=== PATIENT | male | born 1960 | race African-American/Black ===

== ENCOUNTER → 2018-01-05 09:49 | Outpatient (CLI) | payer BC ==
[~2018-01-05 09:49] MED LIST: BC POWDER; GLUCOPHAGE500 MG PO; LOTENSIN20 MG; LOTREL 10/20 CA1 CAP PO; NEURONTIN 300300 MG PO; NORVASC10 MG PO; PLAVIX75 MG PO
[2018-01-29 06:23] VITALS: BMI 21.4
== END | disposition home or self-care (01) ==
LOC: D.CT 09:49
DX: I73.9 Peripheral vascular disease, unspecified (principal)

== ENCOUNTER 2018-01-09 05:13 | Outpatient (CLI) | payer BC ==
[2018-01-09] VITALS (9 sets, daily range): BP systolic 131–190; BP diastolic 71–88; Ht 185.4 cm; Wt 75.0 kg
[~2018-01-09] VITALS: Ht 185.4 cm; Wt 75.0 kg
--- NOTE | ~2018-01-09 | HEMODYNAMI ---
PATIENT:JENA REAVES MEDICAL RECORD: [id number] : 56 [id number] ADMISSION DATE: 01/09/18 Generatedon:01/09/201813:42 Patient name: JENA REAVES Patient #: [id number] SSN: : 1960 Date of study: 01/09/2018 Page: Of Hemodynamic Procedure Report Patient Data Patient Demographics Procedure consent was obtained First Name: JENA Gender: Male Last Name: JELLY : 1960 Middle Initial: L Age: 57 year(s) Patient #: [id number] Race: Black Additional ID: [id number] Contact details [address]: [address] [place] [address] State: [place] City: [place] Zip code: [address] Admission Admission Data Admission Date: 01/09/2018 Admission Time: 5:13 Procedure Procedure Types Cath Procedure Peripheral Cath Diagnostic Procedure Abd/Extremity Extremities Procedure Description Procedure Date Procedure Date: 01/09/2018 Procedure Start Time: 8:55 Procedure Staff Name Function Richard Pacheco MD Performing Physician Garth Ovalles RT Monitor Kaitlyn Garcia RT Scrub Tamela Gandhi RN Nurse Procedure Data Cath Procedure Fluoroscopy Diagnostic fluoroscopy Total fluoroscopy Time: time: 62.9 min 62.9 min Diagnostic fluoroscopy Total fluoroscopy dose: 759 dose: 759 mGy mGy Contrast Material Contrast Material Type Amount (ml) Isovue 300 130 Entry Location Entry Primary Successful Side Size Upsize 1 Upsize 2 Entry Closur e Successful Closure Location (Fr) (Fr) (Fr) Remarks Device Remarks Femoral Right 5 Fr 6 Fr 7 Fr Mynx artery Mid-Length Mid-Length Sawmill Production Worker 6Fr/7Fr Diagnostic catheters Device Type Used For End Catheter Placement DIAGNOSTIC IMT 5Fr Catheter ([id number]) Procedure Medications Medication Administration Route Dosage Fentanyl I.V. 50 mcg Versed I.V. 1 mg Oxygen etCO2 Nasal cannula 3 l/min Lidocaine 1% added to field 20 Heparin Flush Bag added to field 3 bags (1000units/500ml NS) Fentanyl I.V. 50 mcg Heparin Bolus I.V. 4000 units Fentanyl I.V. 50 mcg Heparin Bolus I.V. 2000 units Fentanyl I.V. 50 mcg Fentanyl I.V. 50 mcg Versed I.V. 1 mg Heparin Bolus I.V. 2000 units Nitroglycerin IC/IA I.C. 300 mcg Nitroglycerin IC/IA I.C. 300 mcg Heparin Bolus I.V. 2000 units Fentanyl I.V. 50 mcg Fentanyl I.V. 50 mcg Heparin Bolus I.V. 3000 units Nitroglycerin IC/IA I.C. 400 mcg Heparin Flush Bag added to field 1 bags (1000units/500ml NS) Heparin Drip I.V. drip 1000 units/hr (74479gnxbf/250 D5W) Hemodynamics Rest Heart Rate: 68 (bpm) Snapshots Pre Cath Intra NCS Post Cath Vital Signs Time Heart Resp SPO2 etCO2 NIBP (mmHg) Rhythm Pain Status Sedation Rate (ipm) (%) (mmHg) Level (bpm) 8:31:52 69 4 99 38.4 141/75(110) NSR 0 (11) , No 10(A) pain 8:36:16 69 2 100 42.1 145/70(96) NSR 0 (11) , No 10(A) pain 8:40:37 69 15 100 30.1 140/77(107) NSR 0 (11) , No 10(A) pain 8:45:01 66 15 100 26.3 147/72(114) NSR 0 (11) , No 10(A) pain 8:49:23 64 17 100 29.3 146/75(117) NSR 0 (11) , No 10(A) pain 8:53:45 85 8 100 39.1 146/75(108) NSR 0 (11) , No 10(A) pain 8:58:05 78 19 100 21 137/74(116) NSR 0 (11) , No 8(A) pain 9:02:27 72 16 100 19.5 147/70(115) NSR 0 (11) , No 8(A) pain 9:06:50 65 12 100 25.5 139/71(121) NSR 0 (11) , No 8(A) pain 9:11:12 70 14 99 30.8 152/72(119) NSR 2 (11) , 8(A) Uncomfortable 9:15:36 69 15 99 30.8 156/77(126) NSR 0 (11) , No 8(A) pain 9:19:54 82 16 96 22.5 150/78(115) NSR 0 (11) , No 8(A) pain 9:24:14 83 19 98 33.1 146/78(107) NSR 0 (11) , No 8(A) pain 9:28:36 80 18 97 32.4 147/78(115) NSR 0 (11) , No 8(A) pain 9:32:49 71 17 96 29.3 137/76(109) NSR 0 (11) , No 8(A) pain 9:37:09 81 17 97 35.3 135/74(106) NSR 0 (11) , No 8(A) pain 9:41:29 81 18 98 30.1 141/74(123) NSR 2 (11) , 8(A) Uncomfortable 9:45:41 73 20 95 28.6 132/80(104) NSR 0 (11) , No 8(A) pain 9:49:59 68 18 98 27.8 136/77(106) NSR 0 (11) , No 8(A) pain 9:54:21 70 16 98 33.9 136/65(95) NSR 0 (11) , No 8(A) pain 9:58:43 66 17 99 32.4 131/66(104) NSR 0 (11) , No 8(A) pain 10:02:59 71 21 98 26.3 135/74(110) NSR 0 (11) , No 8(A) pain 10:07:19 67 18 98 31.6 143/71(105) NSR 0 (11) , No 8(A) pain 10:11:37 72 17 98 30.8 131/67(104) NSR 0 (11) , No 8(A) pain 10:15:57 74 13 95 30.1 134/69(108) NSR 2 (11) , 8(A) Uncomfortable 10:20:16 68 15 98 17.3 139/72(101) NSR 0 (11) , No 8(A) pain 10:24:31 67 18 98 36.1 139/69(97) NSR 0 (11) , No 8(A) pain 10:28:50 70 18 99 24 136/70(107) NSR 0 (11) , No 8(A) pain 10:33:05 69 19 96 27 135/75(109) NSR 0 (11) , No 8(A) pain 10:37:24 69 18 98 25.5 132/75(105) NSR 4 (11) , 8(A) Distressing 10:41:40 68 15 96 36.9 135/72(107) NSR 0 (11) , No 8(A) pain 10:45:54 69 11 96 42.1 129/78(106) NSR 0 (11) , No 8(A) pain 10:50:08 73 12 97 42.9 132/74(116) NSR 0 (11) , No 8(A) pain 10:54:28 91 14 96 33.8 126/69(92) NSR 0 (11) , No 8(A) pain 10:58:42 85 14 96 38.3 141/78(113) NSR 0 (11) , No 8(A) pain 11:03:02 88 14 96 38.3 135/81(107) NSR 0 (11) , No 8(A) pain 11:07:22 74 14 96 38.3 139/74(110) NSR 0 (11) , No 8(A) pain 11:11:36 74 14 96 38.3 131/81(94) NSR 0 (11) , No 8(A) pain 11:15:48 70 15 96 38.3 130/82(90) NSR 0 (11) , No 8(A) pain 11:20:04 85 15 96 37.6 134/71(96) NSR 0 (11) , No 8(A) pain 11:24:16 90 16 98 32.3 131/77(100) NSR 0 (11) , No 8(A) pain 11:28:32 73 15 96 32.3 143/81(107) NSR 0 (11) , No 8(A) pain 11:32:52 70 18 94 18.8 138/78(101) NSR 0 (11) , No 8(A) pain 11:37:10 67 16 94 30.8 136/77(108) NSR 0 (11) , No 8(A) pain 11:41:28 85 16 29.3 120/77(102) NSR 0 (11) , No 8(A) pain 11:45:42 69 17 24.1 137/76(108) NSR 0 (11) , No 8(A) pain 11:49:58 70 21 27.8 133/77(107) NSR 0 (11) , No 8(A) pain 11:54:14 69 20 15.8 133/74(107) NSR 0 (11) , No 8(A) pain 11:58:30 67 19 24.1 133/72(106) NSR 4 (11) , 8(A) Distressing 12:02:50 66 19 26.3 143/76(116) NSR 0 (11) , No 8(A) pain 12:07:13 67 17 22.6 141/75(121) NSR 0 (11) , No 8(A) pain 12:11:35 65 18 98 29.3 140/74(115) NSR 0 (11) , No 8(A) pain 12:15:51 70 18 22.6 137/79(111) NSR 0 (11) , No 8(A) pain 12:20:07 65 16 99 36.9 139/83(98) NSR 0 (11) , No 8(A) pain 12:24:21 67 11 98 35.4 142/78(109) NSR 0 (11) , No 8(A) pain 12:28:41 87 13 97 35.4 141/83(106) NSR 0 (11) , No 8(A) pain 12:33:03 79 13 98 39.1 139/78(119) NSR 0 (11) , No 8(A) pain 12:37:23 74 14 98 35.3 137/75(102) NSR 0 (11) , No 8(A) pain 12:42:22 86 13 98 37.6 Measuring NSR 0 (11) , No 8(A) pain 12:42:28 85 12 99 37.6 143/83(103) NSR 0 (11) , No 8(A) pain 12:46:44 90 13 99 37.6 139/75(114) NSR 0 (11) , No 8(A) pain 12:51:02 84 13 99 35.4 153/84(113) NSR 0 (11) , No 8(A) pain 12:55:18 88 15 99 28.6 146/83(108) NSR 0 (11) , No 8(A) pain 12:59:30 85 16 99 35.4 145/91(110) NSR 0 (11) , No 8(A) pain 13:03:46 81 15 100 30.8 135/83(110) NSR 0 (11) , No 8(A) pain 13:08:46 86 15 100 30.1 Measuring NSR 0 (11) , No 8(A) pain 13:09:06 89 16 100 24.1 159/99(124) NSR 0 (11) , No 8(A) pain 13:14:05 76 19 100 20.3 Measuring NSR 0 (11) , No 8(A) pain 13:14:17 70 16 100 23.3 154/85(123) NSR 0 (11) , No 8(A) pain 13:18:35 79 19 99 19.5 162/94(137) NSR 0 (11) , No 8(A) pain 13:23:02 76 16 100 26.3 157/89(130) NSR 0 (11) , No 8(A) pain 13:27:28 74 19 99 13.5 154/89(126) NSR 0 (11) , No 8(A) pain 13:31:50 71 17 99 25.5 162/89(134) NSR 0 (11) , No 8(A) pain 13:36:14 99 23.3 171/95(151) NSR 0 (11) , No 8(A) pain 13:40:14 0 No Cuff NSR 0 (11) , No 8(A) pain Medications Time Medication Route Dose Verified Delivered Reason Note s Effectiveness by by 8:56:22 Fentanyl I.V. 50 mcg Richard Rapp for Mostly Tara Gandhi RN sedation sleeping @ MD 9:05:51 8:56:33 Versed I.V. 1 mg Richard Rapp for Mostly Tara Gandhi RN sedation sleeping @ MD 9:05:45 8:56:51 Oxygen etCO2 3 l/min Richard Rapp Per Nasal Tara Gandhi RN protocol cannula MD 8:57:02 Lidocaine 1% added 20ml vial Richard Ramos Per to Tara Pacheco protocol field MD BARRIENTOS 8:57:23 Heparin Flush added 3 bags Richard Ramos Per Bag to Tara Pacheco protocol (1000units/500ml field MD BARRIENTOS NS) 9:15:24 Fentanyl I.V. 50 mcg Richard Ramos for Mostly Tara Pacheco sedation sleeping @ MD BARRIENTOS 9:23:35 9:15:40 Heparin Bolus I.V. 4000 units Richard Rapp Per Tara Gandhi RN protocol 9:44:17 Fentanyl I.V. 50 mcg Richard Rapp for Mostly Tara Gandhi RN sedation sleeping @ 9:58:05 10:00:13 Heparin Bolus I.V. 2000units Richard Rapp Per Tara Gandhi RN protocol 10:16:13 Fentanyl I.V. 50 mcg Richard Rapp for Mostly Tara Gandhi RN sedation sleeping @ 10:28:49 10:37:31 Fentanyl I.V. 50 mcg Richard Rapp for Mostly Tara Gandhi RN sedation sleeping @ 10:46:41 10:37:50 Versed I.V. 1 mg Richard Rapp for Mostly Tara Gandhi RN sedation sleeping @ 10:46:38 10:46:32 Heparin Bolus I.V. 2000units Richard Rapp Per Tara Gandhi RN protocol 10:50:40 Nitroglycerin I.C. 300 mcg Richard Ramos Per IC/IA Tara Pacheco physician MD BARRIENTOS 11:19:19 Nitroglycerin I.C. 300 mcg Richard Ramos Per IC/IA Tara Pacheco physician MD BARRIENTOS 11:30:45 Heparin Bolus I.V. 2000units Richard Rapp Per Tara Gandhi RN protocol 11:41:53 Fentanyl I.V. 50 mcg Richard Rapp for Mostly Tara Gandhi RN sedation sleeping @ 11:52:16 11:59:16 Fentanyl I.V. 50 mcg Richard Rapp for Dozing Tara Gandhi RN sedation intermittently MD @ 12:06:05 12:16:10 Heparin Bolus I.V. 3000units Richard Rapp Per Tara Gandhi RN protocol 12:25:58 Nitroglycerin I.C. 400 mcg Rihcard Sparks IC/IA Tara Pacheco physician MD BARRIENTOS 12:32:57 Heparin Flush added 1 bags Richard Ramos Per Bag to Tara Pacheco protocol (1000units/500ml field MD BARRIENTOS NS) 13:26:28 Heparin Drip I.V. 1000units/hr Richard Sparks (54215eitep/250 drip Tara Gandhi RN protocol D5W) Procedure Log Time Note 8:07:47 Garth Ovalles RT (R) (CV) sent for patient. Start room use. 8:08:01 Time tracking: Regular hours (M-F 7:00 - 5:00) 8:08:13 Plan of Care:Hemodynamics will remain stable., Cardiac rhythm will remain stable., Comfort level will be maintained., Respiratory function will remain adequate., Patient/ family verbilizes understanding of procedure., Procedure tolerated without complication., Recovers from procedure without complications.. 8:08:28 Patient received from Outpatients to IR Alert and oriented. Tansferred to table in Supine position. 8:11:02 Correct patient and procedure confirmed by team. 8:11:03 Signed procedure consent form obtained from patient. 8:11:04 ECG and BP/O2 sat monitors applied to patient. 8:11:05 Full Disclosure recording started 8:11:06 - 8:11:11 H&P Date Dictated: 01/09/2018 H&P Addendum completed by physician on day of procedure. (MUST COMPLETE FOR ALL OUTPATIENTS). 8:11:12 Pre-procedure instructions explained to patient. 8:11:13 Pre-op teaching completed and patient verbalized understanding. 8:11:14 Family in waiting room. 8:11:17 Patient NPO since Midnight. 8:11:21 Is the patient allergic to Iodine/contrast media? No. 8:11:26 Is patient on blood thinner?Yes 8:11:28 ACC The patient was administered the following blood thiners within the last 24 hours: ACCAspirin 8:11:37 Patient diabetic? Yes. 8:11:41 If diabetic: On Metformin? Yes 8:11:52 If on Metformin: Last Dose? 01/08/2018 8:11:54 - 8:11:54 ----Pre-sedation anethsthesia assessment.---- 8:11:57 Previous problem with sedation/anesthesia? No ? 8:12:01 Snore? No 8:12:02 Sleep apnea? No 8:12:04 Deviated septum? No 8:12:05 Opens mouth fully? Yes 8:12:06 Sticks out tongue? Yes 8:12:09 Airway obstruction? No ? 8:12:14 Dentures? Yes in tight 8:12:21 Use device set IR Diagnostic 8:12:22 ACIST Syringe (57021) opened to sterile field. 8:12:22 ACIST Hand Control (76317) opened to sterile field. 8:12:23 ACIST Manifold (00235) opened to sterile field. 8:12:23 Bag Decanter (2002S) opened to sterile field. 8:12:23 Sterile Angiographic Pack opened to sterile field. 8:12:24 Tegaderm 4 x 4 (1626W) opened to sterile field. 8:19:46 Pre procedure: right dorsailis pedis pulse Doppler 8:19:48 Pre procedure: left dorsailis pedis pulse Doppler 8:19:52 Pre procedure: right posterior tibial pulse Doppler 8:19:56 Pre procedure: left posterior tibial pulse Doppler 8:19:59 Patient pain scale 0/10 no pain. 8:20:02 Alarms reviewed by R. N. 8:20:03 Sharps counted by scrub and verified by R.N. 8:20:16 Right groin area was prepped with chlora-prep and draped in sterile fashion 8:20:24 Right pedal area was prepped with chlora-prep and draped in sterile fashion 8:30:47 Vital chart was started 8:35:12 IV patent on arrival in right hand with 0.9% NaCl at O. 8:50:45 Baseline sample Acquired. 8:51:55 Physician arrived 8::55 --------ALL STOP TIME OUT------ 8:51:56 Final Timeout: patient, procedure, and site verified with staff and physician. All members of the team are in agreement. 8:52:01 Right groin and left pedal area site verified by team. 8:52:08 Sedation plan: IV Moderate Sedation Medication:Versed, Fentanyl 8:55:01 Procedure started. 8:55:06 Local anesthetic to right femoral artery with Lidocaine 1% by Richard Pacheco MD.INITIAL ACCESS ONLY 8:55:18 A 5 Fr sheath was inserted into the Right Femoral artery 8:55:23 SHEATH 6FR Destination (RSR01) opened to sterile field. 8:55:23 Micropuncture VSI 4FR kit opened to sterile field. 8:55:24 SHEATH 5FR [place] (VYY367) opened to sterile field. 8:55:25 GONZALEZ 260 wire (L90926) opened to sterile field. 8:55:25 CHOICE PT Extra Support J 300cm guide wire ([id number]) opened to steril e field. 8:55:26 BENTSON 145cm wire (X56454) opened to sterile field. 8:55:29 A DIAGNOSTIC IMT 5Fr Catheter ([id number]) was advanced over the wire an d used for . 8:56:22 Fentanyl 50 mcg I.V. was administered by Tameal Gandhi RN; for sedation; 8:56:33 Versed 1 mg I.V. was administered by Tamela Gandhi RN; for sedation; 8:56:51 Oxygen 3 l/min etCO2 Nasal cannula was administered by Tamela Gandhi RN; Per protocol; 8:57:02 Lidocaine 1% 20ml vial added to field was administered by Richard hjai MD; Per protocol; 8:57:23 Heparin Flush Bag (1000units/500ml NS) 3 bags added to field was administered by Richard Pacheco MD; Per protocol; 9:05:45 Effectiveness of Versed delivered @ 8:56:33 is: Mostly sleeping 9:05:51 Effectiveness of Fentanyl delivered @ 8:56:22 is: Mostly sleeping 9:07:11 ROADRUNNER .035 260 glide wire (O93885) opened to sterile field. 9:07:33 Inflate balloon Inflation number: 1 A Evercross 6 x 4 x 135 Balloon ([id number]) was prepped and advanced across the Mid External Iliac, Left, then inflated 9:07:44 INFLATOR BasixTOUCH (IX7273) opened to sterile field. 9:12:49 [place] Catheter Flex (LLOGC199) opened to sterile field. 9:15:24 Fentanyl 50 mcg I.V. was administered by Richard Pacheco MD; for sedation; 9:15:40 Heparin Bolus 4000 units I.V. was administered by Tamela Gandhi RN; Per protocol; 9:23:35 Effectiveness of Fentanyl delivered @ 9:15:24 is: Mostly sleeping 9:28:23 CXI SUPPORT .035 135 CM STR catheter (D94209) opened to sterile field. 9:30:45 CXI SUPPORT .018 150CM STR catheter (U79223) opened to sterile field. 9:39:31 ASAHI TREASURE 12 300cm wire ([id number]) opened to sterile field. 9:44:17 Fentanyl 50 mcg I.V. was administered by Tamela Gandhi RN; for sedation; 9:46:45 Access obtained with 4Fr micropunture. 9:50:16 CXI Catheter 90cm (U24021) opened to sterile field. 9:55:29 Inflate balloon Inflation number: 1 A Pipestone Plus 2.5x 60 x 130 Balloo n ([id number]) was prepped and advanced across the Undefined1, then inflated 9:56:23 CHOICE PT Extra Support J 300cm guide wire ([id number]) opened to steril e field. 9:57:26 Inflate balloon Inflation number: 2 A raquel cross 3 x 210 x 130 Balloon ([id number]) was prepped and advanced across the Mid External Iliac, Left, then inflated to 0 RU for 0:00 (min:sec). 9:58:05 Effectiveness of Fentanyl delivered @ 9:44:17 is: Mostly sleeping 9:59:10 SPIDER EMBOLIC PROTECTION DEVICE 3MM ([id number]) opened to sterile field. 10:00:13 Heparin Bolus 2000units I.V. was administered by Tamela Hiram RN; Per protocol; 10:02:25 hawk one opedned to field #H1-M 10:03:44 Sheath upsized to a 6 Fr Mid-Length. 10:04:06 Cook RAABE 6FR. 90cm guide sheath opened to sterile field. 10:16:13 Fentanyl 50 mcg I.V. was administered by Tamela Gandhi RN; for sedation; 10:28:00 Access obtained with 4Fr micropunture. 10:28:12 Inflate balloon Inflation number: 2 A Pipestone Plus 2 x 150 x 130 Balloo n ([id number]) was prepped and advanced across the Undefined1, then inflated 10:28:49 Effectiveness of Fentanyl delivered @ 10:16:13 is: Mostly sleeping 10:37:20 COPILOT Valve Control (7439209) opened to sterile field. 10:37:31 Fentanyl 50 mcg I.V. was administered by Tamela Gandhi RN; for sedation; 10:37:50 Versed 1 mg I.V. was administered by Tamela Gandhi RN; for sedation; 10:41:53 [place]K 1 Small Atherectomy catheter (H1S) opened to sterile field. 10:46:32 Heparin Bolus 2000units I.V. was administered by Tamela Gandhi RN; Per protocol; 10:46:38 Effectiveness of Versed delivered @ 10:37:50 is: Mostly sleeping 10:46:41 Effectiveness of Fentanyl delivered @ 10:37:31 is: Mostly sleeping 10:50:40 Nitroglycerin IC/IA 300 mcg I.C. was administered by Richard Pacheco MD; Per physician; 11:19:19 Nitroglycerin IC/IA 300 mcg I.C. was administered by Richard Pacheco MD; Per physician; 11:30:45 Heparin Bolus 2000units I.V. was administered by Tamela Gandhi RN; Per protocol; 11:37:35 AMPLATZ Short Taper 260cm wire ([id number]) opened to sterile field. 11:41:53 Fentanyl 50 mcg I.V. was administered by Tamela Gandhi RN; for sedation; 11:45:39 Inflate balloon Inflation number: 1 A IN.PACT Admiral 6 x 150 x 130 DCB balloon ([id number]) was prepped and advanced across the Distal Superficial Femoral, Left, then inflated to 8 RU for 2:47 (min:sec). 11:52:16 Effectiveness of Fentanyl delivered @ 11:41:53 is: Mostly sleeping 11:53:42 Inflate balloon Inflation number: 1 A IN.PACT Admiral 6 x 150 x 130 DCB balloon ([id number]) was prepped and advanced across the Mid Superficial Femoral, Left, then inflated to 8 RU for 3:01 (min:sec). 11:54:34 SHEATH 7FR Destination (RSR04) opened to sterile field. 11:54:55 Sheath upsized to a 7 Fr Mid-Length. 11:59:16 Fentanyl 50 mcg I.V. was administered by Tamela Gandhi RN; for sedation; 12:01:16 Inflate balloon Inflation number: 1 A IN.PACT Admiral 7 x 80 x 130 DCB Balloon ([id number]) was prepped and advanced across the Proximal Superficial Femoral, Left, then inflated to 8 RU for 3:00 (min:sec). 12:06:05 Effectiveness of Fentanyl delivered @ 11:59:16 is: Dozing intermittentl y 12:06:34 Entrust 6 x 150 Stent ([id number]) was deployed across Proximal Superficial Femoral, Left . 12:10:26 entrust 7 x 150 stent lot#[id number] 12:11:27 Inflate balloon Inflation number: 2 A Evercross 6 x 100 x 135 Balloon ([id number]) was prepped and advanced across the Proximal Superficial Femoral, Left, then inflated 12:15:56 Entrust 8 x 150 Stent ([id number]) was deployed across Proximal Superficial Femoral, Left . 12:16:10 Heparin Bolus 3000units I.V. was administered by Tamela Gandhi RN; Per protocol; 12:18:33 Inflate balloon Inflation number: 3 A Evercross 7 x 100 x 135 Balloon ([id number]) was prepped and advanced across the Superficial Femoral, Left, then inflated 12:21:32 Inflate balloon Inflation number: 3 A [place] 3 x 100 x 135 Balloon ([id number]) was prepped and advanced across the Undefined1, then inflated 12:25:58 Nitroglycerin IC/IA 400 mcg I.C. was administered by Richard Pacheco MD; Per physician; 12:32:57 Heparin Flush Bag (1000units/500ml NS) 1 bags added to field was administered by Richard Pacheco MD; Per protocol; 12:44:16 Protege GPS 9 x 80 X 120 Stent ([id number]) was deployed across Undefined1 . 12:45:06 Inflate balloon Inflation number: 4 A [place] 8 x 80 x 135 Balloon ([id number]) was prepped and advanced across the Undefined1, then inflated to 0 RU for 0:00 (min:sec). 12:47:08 St Stiven 7FR sheath opened to sterile field. 12:48:55 MYNX ARMATURE WINDER REPAIR 6FR/7FR (IR5731) opened to sterile field. 12:54:55 Sheath removed intact; hemostasis achieved with Mynx Sawmill Production Worker 6Fr/7Fr to th e Right Femoral artery. 12:54:57 Procedure ended.(Physican Out) 13:00:06 Fluoroscopy time 62.90 minutes. 13:00:16 Fluoroscopy dose: 759 mGy 13:00:16 Flurop Dose total: 759 13:00:24 Contrast amount:Isovue 300 130ml. 13:00:32 Sharps counted by scrub and verified by R.N. 13:00:35 Insertion/operative site no bleeding no hematoma. 13:00:40 Post-op/insertion site Right Femoral artery dressed using a 4 x 4 and Tegaderm. 13:00:44 Post right femoral artery:stable 13:00:48 Post Procedure Pulses reassessed and unchanged 13:00:54 Post procedure instruction explained to patient.Patient verbalizes understanding. 13:00:55 Procedure and supply charges have been captured, reviewed, submitted an d are correct. 13:26:28 Heparin Drip (93835vwsko/250 D5W) 1000units/hr I.V. drip was administered by Tamela Gandhi RN; Per protocol; 13:41:57 Report given to Med/Surg. 13:42:01 Patient transfered to Med/Surg with Bed. 13:42:46 Vital chart was stopped Intervention Summary Intervention Notes Time ActionType Lesion and Equipment Used Action# Pressure Duration Attributes 9:07:33 Inflate Mid Evercross 6 x 4 x 1 0 00:00 balloon External 135 Balloon Iliac, Left ([id number]) 9:55:29 Inflate Undefined1 Pipestone Plus 2.5x 1 0 00:00 balloon 60 x 130 Balloon ([id number]) 9:57:26 Inflate Mid Pipestone Plus 3 x 2 0 00:00 balloon External 120 x 130 Balloon Iliac, Left ([id number]) 10:28:12 Inflate Undefined1 Pipestone Plus 2 x 2 0 00:00 balloon 150 x 130 Balloon ([id number]) 11:45:39 Inflate Distal IN.PACT Admiral 6 1 8 02:47 balloon Superficial x 150 x 130 DCB Femoral, balloon Left ([id number]) 11:53:42 Inflate Mid IN.PACT Admiral 6 1 8 03:01 balloon Superficial x 150 x 130 DCB Femoral, balloon Left ([id number]) 12:01:16 Inflate Proximal IN.PACT Admiral 7 1 8 03:00 balloon Superficial x 80 x 130 DCB Femoral, Balloon Left ([id number]) 12:06:34 Deploy self Proximal Entrust 6 x 150 1 expanding Superficial Stent stent Femoral, ([id number]) Left 12:11:27 Inflate Proximal Evercross 6 x 100 2 0 00:00 balloon Superficial x 135 Balloon Femoral, ([id number]) Left 12:15:56 Deploy self Proximal Entrust 8 x 150 1 expanding Superficial Stent stent Femoral, ([id number]) Left 12:18:33 Inflate Proximal Evercross 7 x 100 3 0 00:00 balloon Superficial x 135 Balloon Femoral, ([id number]) Left 12:21:32 Inflate Undefined1 Evercross 3 x 100 3 0 00:00 balloon x 135 Balloon ([id number]) 12:44:16 Deploy self Undefined1 Protege GPS 9 x 80 1 expanding X 120 Stent stent ([id number]) 12:45:06 Inflate Undefined1 Evercross 8 x 100 4 0 00:00 balloon x 135 Balloon ([id number]) Device Usage Item Name Manufacture Quantity Catalog Number Hospital Part Current Minimal Lot# / Charge Number Stock Stock Serial# Code ACIST Syringe Acist Medical 1 81201 007512 855227 941433 20 (80264) Systems Inc ACIST Hand Control [employer] 1 29304 210446 444939 936798 5 (60124) Systems Inc ACIST Manifold [employer] 1 84510 014315 658209 584432 5 (88736) Systems Inc Bag Decanter Microtek 1 2001S 459044 83165 549102 5 (2001S) Medical Inc. Sterile Cardinal 1 [id number] 438012 738097 5 Angiographic [facility] Tegaderm 4 x 4 3M 1 1626W 390653 595055 776296 5 (1626W) SHEATH 6FR Terumo 1 RSR01 355704 36149 714344 5 Destination (RSR01) Micropuncture VSI VSI VASCULAR 1 7266V 085885 857598 5 4FR kit SOLUTIONS SHEATH 5FR Terumo 1 YVP759 910806 797392 377078 40 [place] (JHY128) GONZALEZ 260 wire [facility] 1 W44040 688981 550893 5 [id number] (R16467) CHOICE PT Extra [place] 2 [id number] 578072 188885 861645 5 [id number] Support J 300cm Scientific [id number] guide wire (6498139P4) [place] 145cm wire [facility] 1 W66613 970113 195301 5 [id number] (A33625) DIAGNOSTIC IMT 5Fr [place] 1 [id number] 521482 718997 98809 5 [id number] Catheter Scientific ([id number]) ROADRUNNER .035 [facility] 1 E46355 779366 818991 976405 5 3216045 260 glide wire (B86422) [place] 6 x 4 x Med[employer]onic 1 [id number] 440355 132440 309180 5 [id number] 135 Balloon ([id number]) INFLATOR [facility] 1 XA6899 509122 380342 023807 5 [id number] BasixTOUCH (QN9805) [place] Medtronic 1 VNC-FX-150 867461 288022 671996 5 Catheter Flex (FOMNP629) CXI SUPPORT .035 [facility] 1 W62256 256108 860479 570115 5 1973326 135 CM STR catheter (U31275) CXI SUPPORT .018 [facility] 1 P16605 840675 706802 738863 5 [id number] 150CM STR catheter (M47275) ASAHI TREASURE 12 Cardiovascular 1 [id number] 351804 697640 572674 5 300cm wire systems ([id number]) CXI Catheter 90cm Cook Medical 1 V22776 372308 164757 648633 5 [id number] (C26998) Pipestone Plus 2.5x Medtronic 1 [id number] 735040 417397 184423 5 60 x 130 Balloon ([id number]) Pipestone Plus 3 x Medtronic 1 [id number] 754098 263314 556781 5 120 x 130 Balloon ([id number]) SPIDER EMBOLIC Medtronic 1 [id number]-BO-[id number] 821353 794221 5 PROTECTION DEVICE 3MM ([id number]) Cook RAABE 6FR. [employer] 1 Y31526 694526 121174 5 90cm guide sheath Pipestone Plus 2 x Medtronic 1 [id number] 398647 408856 413617 5 150 x 130 Balloon ([id number]) COPILOT Valve Lucero 1 2525126 687026 705624 743334 5 Control (1562427) Vascular [place] 1 Small Medtronic 1 H1-S 612819 7706607 818372 5 Atherectomy catheter (H1S) AMPLATZ Short [place] 1 [id number] 957220 210114 271500 5 [id number] Taper 260cm wire Scientific ([id number]) IN.PACT Admiral 6 Medtronic 2 [id number] 630811 6355707 975504 5 [id number] x 150 x 130 DCB [id number] balloon ([id number]) SHEATH 7FR Terumo 1 RSR04 227593 109446 625690 5 Destination (RSR04) IN.PACT Admiral 7 Medtronic 1 [id number] 199069 116353 5 [id number] x 80 x 130 DCB Balloon ([id number]) Entrust 6 x 150 Medtronic 1 ZNY52-87-059-377 830302 926647 489229 5 [id number] Stent e5635258 ([id number]) Evercross 6 x 100 Medtronic 1 [id number] 142252 656487 875239 5 V324981 x 135 Balloon ([id number]) Entrust 8 x 150 Medtronic 1 JZS08-37-561-265 617677 544957 520879 5 [id number] Stent E980100 ([id number]) Evercross 7 x 100 Medtronic 1 [id number] 674560 397983 483379 5 [id number] x 135 Balloon ([id number]) Evercross 3 x 100 Medtronic 1 [id number] 954668 17239 919452 5 x 135 Balloon ([id number]) Protege GPS 9 x 80 Medtronic 1 TBTJ79-93-63-425 910390 796108 359598 5 [id number] X 120 Stent U546837 (Fdlp23-32-91-204) Evercross 8 x 100 Medtronic 1 [id number] 689360 715701 154742 5 x 135 Balloon ([id number]) St Stiven 7FR sheath St Stiven 1 545934 951960 461055 5 [id number] MYNX ARMATURE WINDER REPAIR 6FR/7FR Access Closure 1 GY6604 068696 070234 5 [id number] (OR4222) Signature Audit [place] Stage Time Signature Unsigned Intra-Procedure 01/09/2018 Garth Ovalles RT 1:42:41 PM (R) (CV) Signatures Monitor : Garth Ovalles RT Signature : Date : Time : [address] [address]
[2018-01-09] MEDS ORDERED: NORVASC10 MG PO (06:19)
[2018-01-09] MEDS ORDERED: LOTENSIN20 MG (06:20)
[2018-01-09] MEDS ORDERED: LOTREL 10/20 CA1 CAP PO (06:21)
[2018-01-09] MEDS ORDERED: NEURONTIN 300300 MG PO (06:22)
[2018-01-09] MEDS ORDERED: BC POWDER (06:22)
[2018-01-09] MEDS ORDERED: GLUCOPHAGE500 MG PO (06:23)
[2018-01-09 06:25] LABS: BASOPHILS 0.4 % (0-2); EOSINOPHILS 1.7 % (0-7); HEMATOCRIT 39.2 % (42.0-54.0); HEMOGLOBIN 12.8 g/dL (13.5-17.5); IMMATURE GRANULOCYTES 0.2 % (0-5); LYMPHOCYTES 18.3 % (15-50); MCH 28.6 pg (26.0-34.0); MCHC 32.7 g/dL (31.0-37.0); MCV 87.7 fL (80.0-100.0); MEAN PLATELET VOLUME 9.8 fL (7.4-10.4); MONOCYTES 6.9 % (2-11); NEUTROPHILS 72.5 % (40-80); PLATELET COUNT 171 10x3/uL (130-400); RBC 4.47 10x6/uL (4.20-6.10); RDW 13.6 % (11.5-14.5); WBC 13.9 10x3/uL (4.8-10.8)
[2018-01-09 06:34] LABS: APTT 29.9 SECONDS (22.8-39.4); INR 1.13 (0.85-1.17); PROTIME 14.1 SECONDS (11.6-15.0)
[2018-01-09 06:56] LABS: ANION GAP 17.9 mmol/L (8-16); CALCIUM 9.5 mg/dL (8.5-10.1); CARBON DIOXIDE 22.7 mmol/L (21.0-32.0); CREATININE - SERUM 1.1 mg/dL (0.6-1.3); POTASSIUM - SERUM 4.6 mmol/L (3.5-5.1)
[2018-01-09 20:39] LABS: INR 1.23 (0.85-1.17); PROTIME 15.1 SECONDS (11.6-15.0)
[2018-01-09 20:40] LABS: APTT 75.6 SECONDS (22.8-39.4)
[2018-01-09 21:16] LABS: HEMATOCRIT 38.5 % (42.0-54.0); MCH 28.8 pg (26.0-34.0); MCHC 33.8 g/dL (31.0-37.0); MEAN PLATELET VOLUME 10.5 fL (7.4-10.4); RBC 4.51 10x6/uL (4.20-6.10); RDW 13.3 % (11.5-14.5)
[2018-01-09 21:17] LABS: MCV 85.4 fL (80.0-100.0); WBC 19.3 10x3/uL (4.8-10.8)
[2018-01-10 00:45] LABS: HEMATOCRIT 38.6 % (42.0-54.0); MCH 28.7 pg (26.0-34.0); MCHC 33.7 g/dL (31.0-37.0); MCV 85.2 fL (80.0-100.0); RBC 4.53 10x6/uL (4.20-6.10); RDW 13.3 % (11.5-14.5); WBC 17.6 10x3/uL (4.8-10.8)
[2018-01-10 04:22] VITALS: BP 151/87
[2018-01-10 06:01] LABS: HEMATOCRIT 37.8 % (42.0-54.0); HEMOGLOBIN 12.9 g/dL (13.5-17.5); MCHC 34.1 g/dL (31.0-37.0); MCV 84.9 fL (80.0-100.0); MEAN PLATELET VOLUME 9.7 fL (7.4-10.4); RBC 4.45 10x6/uL (4.20-6.10); RDW 13.2 % (11.5-14.5); WBC 17.8 10x3/uL (4.8-10.8)
[2018-01-10 09:30] VITALS: BP 145/83
[2018-01-10 13:40] VITALS: BP 139/82
[2018-01-10] MEDS ORDERED: PLAVIX75 MG PO (16:03)
[2018-01-10 20:00] VITALS: BP 143/83
[2018-01-11 04:00] VITALS: BP 133/64
[2018-01-11 06:00] LABS: HEMATOCRIT 37.7 % (42.0-54.0); HEMOGLOBIN 12.8 g/dL (13.5-17.5); MCH 28.7 pg (26.0-34.0); MCV 84.5 fL (80.0-100.0); MEAN PLATELET VOLUME 10.1 fL (7.4-10.4); RBC 4.46 10x6/uL (4.20-6.10)
[2018-01-11 09:27] VITALS: BP 131/84
[2018-01-11 11:48] LABS: APPEARANCE CLEAR (CLEAR); BILIRUBIN NEGATIVE (NEGATIVE); COLOR YELLOW (YELLOW); GLUCOSE 50 mg/dL (NEGATIVE); KETONE NEGATIVE (NEGATIVE); NITRITE NEGATIVE (NEGATIVE); PROTEIN NEGATIVE (NEGATIVE); UROBILINOGEN NORMAL (NORMAL)
[2018-01-11 11:49] LABS: WHITE CELLS - URINE 0-5 /hpf (0-5)
[2018-01-11 11:50] LABS: BACTERIA FEW /hpf (NONE SEEN); EPITHELIAL CELLS 0-5 /hpf (0-5); RED CELLS - URINE NONE SEEN /hpf (0-5)
[2018-01-11 13:40] VITALS: BP 134/66
== END 2018-01-11 17:57 | disposition home or self-care (01) ==
LOC: D.MS 05:13 → D.RAD 05:13 → D.MS 14:00 → D.RAD 01-11 17:57
PROVIDERS: General Practice; Radiology Diagnostic Radiology
DX: I70.222 Atherosclerosis of native arteries of extremities with rest pain, left leg (principal); E11.9 Type 2 diabetes mellitus without complications; E78.00 Pure hypercholesterolemia, unspecified; F17.200 Nicotine dependence, unspecified, uncomplicated; I70.213 Atherosclerosis of native arteries of extremities with intermittent claudication, bilateral legs

== ENCOUNTER 2018-01-29 05:24 | Outpatient (CLI) | payer BC ==
[~2018-01-29] VITALS: Ht 185.4 cm; Wt 73.6 kg
--- NOTE | ~2018-01-29 | HEMODYNAMI ---
PATIENT:JENA REAVES MEDICAL RECORD: [id number] : 56 LOCATION:[facility] ADMISSION DATE: 01/29/18 Generatedon:01/29/201810:41 Patient name: JENA REAVES Patient #: [id number] SSN: : 1960 Date of study: 01/29/2018 Page: Of Hemodynamic Procedure Report Patient Data Patient Demographics Procedure consent was obtained First Name: JENA Gender: Male Last Name: JELLY : 1960 Middle Initial: L Age: 57 year(s) Patient #: [id number] Race: Black Additional ID: [id number] Contact details Address: [address] [place] [address] State: [place] City: [place] Zip code: [address] Past Medical History Allergies: No known allergies Admission Admission Data Admission Date: 01/29/2018 Admission Time: 5:24 Procedure Procedure Types Cath Procedure Peripheral Cath Diagnostic Procedure Cath Peripheral Abd/Extremity Extremities Right Lower Ext Arterio Procedure Description Procedure Date Procedure Date: 01/29/2018 Procedure Start Time: 8:16 Procedure End Time: 10:40 Procedure Staff Name Function Richard Pacheco MD Performing Physician Gloria Peck RT Ventilated Rib Fitter Gloria Peck RT Monitor Tamela Gandhi RN Nurse Jaclyn Dasilva RN Nurse Garth Ovalles RT Scrub Procedure Data Cath Procedure Fluoroscopy Diagnostic fluoroscopy Total fluoroscopy Time: time: 27.7 min 27.7 min Diagnostic fluoroscopy Total fluoroscopy dose: 597 dose: 597 mGy mGy Contrast Material Contrast Material Type Amount (ml) Isovue 300 115 Entry Location Entry Primary Successful Side Size Upsize Upsize Entry Closure Succes sful Closure Location (Fr) 1 (Fr) 2 (Fr) Remarks Device Remarks Femoral Exoseal artery Diagnostic catheters Device Type Used For End Catheter Placement DIAGNOSTIC IMT 5Fr Catheter ([id number]) Procedure Medications Medication Administration Route Dosage Lidocaine 1% added to field 20 Heparin Flush Bag added to field 3 bags (1000units/500ml NS) Oxygen NC 3 l/min Versed I.V. 1 mg Fentanyl I.V. 50 mcg Versed I.V. 1 mg Fentanyl I.V. 50 mcg Heparin Bolus I.V. 4000 units Versed I.V. 1 mg Fentanyl I.V. 50 mcg Nitroglycerin IC/IA I.A. 300 mcg Heparin Bolus I.V. 2000 units Nitroglycerin IC/IA I.A. 300 mcg Versed I.V. 1 mg Fentanyl I.V. 50 mcg Nitroglycerin IC/IA I.A. 300 mcg Heparin Bolus I.V. 1000 units Versed I.V. 1 mg Fentanyl I.V. 50 mcg Versed I.V. 1 mg Fentanyl I.V. 50 mcg Hemodynamics Rest Heart Rate: 0 (bpm) Snapshots Pre Cath Intra NCS Post Cath Vital Signs Time Heart Resp SPO2 etCO2 NIBP (mmHg) Rhythm Pain Sedation Rate (ipm) (%) (mmHg) Status Level (bpm) 7:58:29 72 100 36.2 152/79(112) NSR 0 (11) 10(A) , No pain 8:02:47 73 16 100 41.5 142/82(114) NSR 0 (11) 10(A) , No pain 8:07:01 73 13 100 36.9 155/83(132) NSR 0 (11) 10(A) , No pain 8:11:21 76 13 100 31.6 149/82(122) NSR 0 (11) 10(A) , No pain 8:15:37 73 14 100 33.2 150/85(123) NSR 0 (11) 10(A) , No pain 8:19:55 72 6 100 35.4 153/83(122) NSR 0 (11) 10(A) , No pain 8:24:11 72 15 100 31.6 154/87(124) NSR 0 (11) 10(A) , No pain 8:28:27 80 3 100 36.9 158/89(122) NSR 0 (11) 10(A) , No pain 8:32:45 68 5 100 38.4 150/82(128) NSR 0 (11) 10(A) , No pain 8:37:01 77 17 100 31.7 145/84(123) NSR 0 (11) 10(A) , No pain 8:41:17 72 17 100 33.2 154/83(121) NSR 0 (11) 10(A) , No pain 8:45:39 72 15 100 34.6 142/74(119) NSR 0 (11) 8(A) , No pain 8:49:57 70 14 100 36.2 149/70(125) NSR 0 (11) 8(A) , No pain 8:54:18 76 15 100 28.6 155/77(110) NSR 0 (11) 8(A) , No pain 8:58:38 76 14 100 36.2 147/78(112) NSR 0 (11) 8(A) , No pain 9:02:54 74 17 100 34.7 146/83(128) NSR 0 (11) 8(A) , No pain 9:07:05 86 16 100 36.2 147/85(114) NSR 0 (11) 8(A) , No pain 9:11:24 80 16 99 36.9 143/75(112) NSR 0 (11) 8(A) , No pain 9:15:42 93 16 98 33.2 137/73(96) NSR 0 (11) 8(A) , No pain 9:19:54 89 14 96 34.7 132/81(95) NSR 0 (11) 8(A) , No pain 9:24:04 88 15 97 35.4 131/83(111) NSR 0 (11) 8(A) , No pain 9:28:14 98 16 98 32.4 125/77(103) NSR 0 (11) 8(A) , No pain 9:32:25 92 16 96 33.9 132/77(103) NSR 0 (11) 8(A) , No pain 9:36:35 91 18 95 30.8 137/85(111) NSR 0 (11) 8(A) , No pain 9:40:47 84 17 97 30.8 138/88(119) NSR 0 (11) 8(A) , No pain 9:45:46 92 15 98 33.9 Measuring NSR 0 (11) 8(A) , No pain 9:46:09 89 16 97 33.1 139/78(103) NSR 0 (11) 8(A) , No pain 9:50:19 94 14 98 36.9 126/85(110) NSR 0 (11) 8(A) , No pain 9:54:26 90 14 97 37.7 136/86(100) NSR 0 (11) 8(A) , No pain 9:58:38 94 15 98 38.4 138/80(103) NSR 0 (11) 8(A) , No pain 10:02:50 92 16 98 36.9 129/79(100) NSR 0 (11) 8(A) , No pain 10:06:58 91 16 98 35.4 136/85(105) NSR 0 (11) 8(A) , No pain 10:11:10 84 16 99 30.9 143/86(116) NSR 0 (11) 8(A) , No pain 10:15:26 88 16 98 34.6 145/80(108) NSR 0 (11) 8(A) , No pain 10:19:40 88 13 99 36.9 136/81(96) NSR 0 (11) 8(A) , No pain 10:23:52 93 19 99 33.1 140/84(103) NSR 0 (11) 8(A) , No pain 10:28:06 86 17 100 33.9 149/86(102) NSR 0 (11) 8(A) , No pain 10:32:16 89 15 100 24.8 136/80(109) NSR 0 (11) 8(A) , No pain 10:36:28 91 12 99 31.6 134/73(105) NSR 0 (11) 8(A) , No pain 10:40:36 86 14 100 36.2 133/85(106) NSR 0 (11) 8(A) , No pain Medications Time Medication Route Dose Verified Delivered Reason Notes Effec tiveness by by 8:11:50 Lidocaine 1% added 20ml Richard Ramos used for to vial Tara Pacheco procedure field MD BARRIENTOS 8:12:08 Heparin Flush added 3 Richard Ramos used for Bag to bags Tara Pacheco procedure (1000units/500ml field MD BARRIENTOS NS) 8:18:53 Oxygen NC 3 Richard Anaya used for l/min Tara nelson MD 8:32:31 Versed I.V. 1 mg Richard Jaclyn for Tarakarie Sextonr RN sedation 8:32:42 Fentanyl I.V. 50 Richard Jaclyn for mcg Tara Sextonr RN sedation 8:39:53 Versed I.V. 1 mg Richard Jaclyn for Taraluiza Sextonr RN sedation 8:40:00 Fentanyl I.V. 50 Richard Jaclyn for mcg Tara Sextonr RN sedation 8:43:17 Heparin Bolus I.V. 4000 Richard Pereaine Per units Taar Gandhi RN protocol 8:53:06 Versed I.V. 1 mg Richard Jaclyn for Tara Brown RN sedation 8:53:18 Fentanyl I.V. 50 Richard Jaclyn for mcg Tara Sextonr RN sedation 9:12:53 Nitroglycerin I.A. 300 Richard Ramos used for IC/IA mcg Tara Pacheco procedure MD BARRIENTOS 9:14:53 Heparin Bolus I.V. 2000 Richard Pereaine Per units Tara Gandhi RN protocol 9:26:16 Nitroglycerin I.A. 300 Richard Ramos used for IC/IA mcg Tara Pacheco procedure MD BARRIENTOS 9:28:22 Versed I.V. 1 mg Richard Nelsonody for Tara Dasilva RN sedation 9:28:31 Fentanyl I.V. 50 Richard Jaclyn for mcg Tara Sextonr RN sedation 9:41:22 Nitroglycerin I.A. 300 Richard Ramos used for IC/IA mcg Tara Pacheco procedure MD BARRIENTOS 10:07:11 Heparin Bolus I.V. 1000 Richard Pereaine Per units Tara Gandhi RN protocol 10:12:39 Versed I.V. 1 mg Richard Nelsonody for Tarakarie Sextonr RN sedation 10:12:47 Fentanyl I.V. 50 Richard Jaclyn for mcg Tara Sextonr RN sedation 10:23:36 Versed I.V. 1 mg Richard Nelsonody for Tarakarie Sextonr RN sedation 10:23:47 Fentanyl I.V. 50 Richard Jaclyn for mcg Tara Brown RN sedation Procedure Log Time Note 7:34:13 Use device set IR Diagnostic 7:44:05 Time tracking: Regular hours (M-F 7:00 - 5:00) 7:44:14 Plan of Care:Hemodynamics will remain stable., Cardiac rhythm will remain stable., Comfort level will be maintained., Respiratory function will remain adequate., Patient/ family verbilizes understanding of procedure., Procedure tolerated without complication., Recovers from procedure without complications.. 7:44:25 Patient received from Outpatients to IR Alert and oriented. Tansferred to table in Supine position. 7:44:35 Signed procedure consent form obtained from patient. 7:45:03 H&P Date Dictated: 01/29/2018 Within 30 days and on chart.. 7:45:06 Pre-procedure instructions explained to patient. 7:45:07 Pre-op teaching completed and patient verbalized understanding. 7:45:10 Family in waiting room. 7:45:12 Patient NPO since Midnight. 7:45:21 Patient allergic to No known allergies 7:45:26 Is the patient allergic to Iodine/contrast media? No. 7:45:40 Is patient on blood thinner?Yes 7:45:45 ACC The patient was administered the following blood thiners within the last 24 hours: ACCPlavix 7:45:54 Patient diabetic? Yes. 7:46:08 If diabetic: On Metformin? Yes 7:46:17 If on Metformin: Last Dose? 01/28/2018 7:46:20 - 7:46:22 CHOICE PT Extra Support J 300cm guide wire ([id number]) opened to steril e field. 7:46:23 SHEATH 6FR Destination (RSR01) opened to sterile field. 7:46:26 GONZALEZ 260 wire (Q18677) opened to sterile field. 7:46:27 SHEATH 5FR [place] (QEE291) opened to sterile field. 7:46:28 BENTSON 145cm wire (P94762) opened to sterile field. 7:46:29 Micropuncture VSI 4FR kit opened to sterile field. 7:46:30 Tegaderm 4 x 4 (1626W) opened to sterile field. 7:46:31 Sterile Angiographic Pack opened to sterile field. 7:46:32 Bag Decanter (2001S) opened to sterile field. 7:46:48 - 7:47:03 ----Pre-sedation anethsthesia assessment.---- 7:47:09 Previous problem with sedation/anesthesia? No ? 7:47:12 Snore? Yes 7:47:15 Sleep apnea? No 7:47:18 Deviated septum? No 7:47:21 Opens mouth fully? Yes 7:47:23 Sticks out tongue? Yes 7:47:27 Airway obstruction? No ? 7:47:37 Dentures? Yes secured 7:47:40 - 7:47:50 Pre procedure: right dorsailis pedis pulse Doppler 7:47:56 Pre procedure: left dorsailis pedis pulse Doppler 7:48:01 Pre procedure: right posterior tibial pulse Doppler 7:48:06 Pre procedure: left posterior tibial pulse Doppler 7:48:37 IV patent on arrival in left wrist with D5/.45%NaCl at [facility]. 7:48:50 Left groin area was prepped with chlora-prep and draped in sterile fashion 7:48:52 - 7:57:18 ECG and BP/O2 sat monitors applied to patient. 7:57:20 Vital chart was started 7:57:21 Baseline sample Acquired. 7:57:24 Full Disclosure recording started 7:57:56 - 7:57:57 - 8:02:37 A DIAGNOSTIC IMT 5Fr Catheter ([id number]) was advanced over the wire an d used for . 8:03:35 INFLATOR BasixTOUCH (QV6342) opened to sterile field. 8:11:22 Physician arrived 8:11:50 Lidocaine 1% 20ml vial added to field was administered by Richard haji MD; used for procedure; 8:12:08 Heparin Flush Bag (1000units/500ml NS) 3 bags added to field was administered by Richard Pacheco MD; used for procedure; 8:15:32 --------ALL STOP TIME OUT------ 8:15:33 Final Timeout: patient, procedure, and site verified with staff and physician. All members of the team are in agreement. 8:15:44 Procedure started. 8:16:30 Local anesthetic to left femerol artery with Lidocaine 1% by Richard Pacheco MD.INITIAL ACCESS ONLY 8:17:17 Arterial access obtained using ultrasound guidance. 8:18:53 Oxygen 3 l/min NC was administered by Jaclyn Dasilva RN; used for procedure; 8:32:31 Versed 1 mg I.V. was administered by Jaclyn Dasilva RN; for sedation; 8:32:42 Fentanyl 50 mcg I.V. was administered by Jaclyn Dasilva RN; for sedation ; 8:39:53 Versed 1 mg I.V. was administered by Jaclyn Dasilva RN; for sedation; 8:40:00 Fentanyl 50 mcg I.V. was administered by Jaclyn Dasilva RN; for sedation ; 8:40:54 ROADRUNNER .035 260 glide wire (M79227) opened to sterile field. 8:43:17 Heparin Bolus 4000 units I.V. was administered by Tamela Gandhi RN; Per protocol; 8:44:31 CXI SUPPORT .035 135 CM STR catheter (J76748) opened to sterile field. 8:53:06 Versed 1 mg I.V. was administered by Jaclyn Dasilva RN; for sedation; 8:53:18 Fentanyl 50 mcg I.V. was administered by Jaclyn Dasilva RN; for sedation ; 9:04:29 Cook RAABE 6FR. 90cm guide sheath opened to sterile field. 9:04:57 CHOICE PT Floppy Straight 300cm guide wire ([id number]) opened to sterile field. 9:05:40 Inflate balloon Inflation number: 1 A [place] Plus 3 x 120 x 130 Balloo n ([id number]) was prepped and advanced across the Undefined1, then inflated 9:11:40 TuVox LX-C Atherectomy catheter (THSLXC) opened to sterile field. 9:12:53 Nitroglycerin IC/IA 300 mcg I.A. was administered by Richard Pacheco MD; used for procedure; 9:14:53 Heparin Bolus 2000 units I.V. was administered by Tamela Gandhi RN; Per protocol; 9:26:16 Nitroglycerin IC/IA 300 mcg I.A. was administered by Richard Pacheco MD; used for procedure; 9:28:22 Versed 1 mg I.V. was administered by Jaclyn Dasilva RN; for sedation; 9:28:31 Fentanyl 50 mcg I.V. was administered by Jaclyn Dasilva RN; for sedation ; 9:31:57 AMPLATZ Super stiff 260cm wire ([id number]) opened to sterile field. 9:33:52 Inflate balloon Inflation number: 2 A IN.PACT Admiral 5 x 150 x 130 DCB balloon ([id number]) was prepped and advanced across the Undefined1, then inflated to 0 RU for 0:00 (min:sec). 9:41:22 Nitroglycerin IC/IA 300 mcg I.A. was administered by Richard Pacheco MD; used for procedure; 10:02:11 Inflate balloon Inflation number: 3 A IN.PACT Admiral 6 x 150 x 130 DCB balloon ([id number]) was prepped and advanced across the Undefined1, then inflated to 0 RU for 0:00 (min:sec). 10:06:36 Everflex 6 x 60 x 120 Stent ([id number]) was deployed across Undefined1 . 10:07:11 Heparin Bolus 1000 units I.V. was administered by Tamela Gandhi RN; Per protocol; 10:08:08 Inflate balloon Inflation number: 4 A Evercross 7 x 100 x 135 Balloon ([id number]) was prepped and advanced across the Undefined1, then inflated . 10:08:52 Inflate balloon Inflation number: 5 A Evercross 5 x 100 x 135 Balloon ([id number]) was prepped and advanced across the Undefined1, then inflated . 10:11:45 Place stent Inflation Number: 6 A ENTRUST 7 X 150 X 120 STENT ([id number]) was prepped and advanced across the Undefined1. The stent was deployed at 0 RU for 0:00 (min:sec). 10:12:39 Versed 1 mg I.V. was administered by Jaclyn Dasilva RN; for sedation; 10:12:47 Fentanyl 50 mcg I.V. was administered by Jaclyn Dasilva RN; for sedation ; 10:20:19 Entrust 8 x 150 Stent ([id number]) was deployed across Undefined2 . 10:23:36 Versed 1 mg I.V. was administered by Jaclyn Dasilva RN; for sedation; 10:23:47 Fentanyl 50 mcg I.V. was administered by Jaclyn Dasilva RN; for sedation ; 10:23:58 SHEATH 6FR [place] (GDB185) opened to sterile field. 10:24:15 EXOSEAL 6Fr (EX600) opened to sterile field. 10:24:36 A sheath was inserted into the Femoral artery 10:24:36 Sheath removed intact; hemostasis achieved with Exoseal to the Femoral artery. 10:26:01 Procedure ended.(Physican Out) 10:28:38 Fluoroscopy time 27.70 minutes. 10:28:45 Fluoroscopy dose: 597 mGy 10:28:45 Flurop Dose total: 597 10:28:57 Contrast amount:Isovue 300 115ml. 10:29:00 Procedure and supply charges have been captured, reviewed, submitted an d are correct. 10:38:51 Post procedure: right dorsailis pedis pulse 1+ Palpable, but thready & weak; easily obliterated. 10:39:05 Post procedure: left dorsailis pedis pulse Doppler. 10:39:14 Post procedure: right posterior tibial pulse 1+ Palpable, but thready & weak; easily obliterated. 10:39:19 Post procedure: left posterior tibial pulse Doppler. 10:39:27 Report given to Outpatients. 10:39:37 Patient transfered to Outpatients with Stretcher. 10:40:38 Procedure ended. 10:40:38 Full Disclosure recording stopped 10:41:06 Vital chart was stopped Intervention Summary Intervention Notes Time ActionType Lesion and Equipment Used Action# Pressure Duration Attributes 9:05:40 Inflate Undefined1 Glenolden Plus 3 x 1 0 00:00 balloon 120 x 130 Balloon ([id number]) 9:33:52 Inflate Undefined1 IN.PACT Admiral 5 2 0 00:00 balloon x 150 x 130 DCB balloon ([id number]) 10:02:11 Inflate Undefined1 IN.PACT Admiral 6 3 0 00:00 balloon x 150 x 130 DCB balloon ([id number]) 10:06:36 Deploy self Undefined1 Everflex 6 x 60 x 1 expanding 120 Stent stent ([id number]) 10:08:08 Inflate Undefined1 Evercross 7 x 100 4 0 00:00 balloon x 135 Balloon ([id number]) 10:08:52 Inflate Undefined1 Evercross 5 x 100 5 0 00:00 balloon x 135 Balloon ([id number]) 10:11:45 Place stent Undefined1 ENTRUST 7 X 150 X 6 0 00:00 120 STENT ([id number]) 10:20:19 Deploy self Undefined2 Entrust 8 x 150 1 expanding Stent stent ([id number]) Device Usage Item Name Manufacture Quantity Catalog Number Hospital Charge Par t Current Minimal Lot# / Code Number Stock Stock Serial# CHOICE PT Extra Ten 1 [id number] 201 972 164178 5 Support J 300cm Scientific guide wire (3408685N2) SHEATH 6FR Terumo 1 RSR01 232962 775 05 877270 5 Destination (RSR01) GONZALEZ 260 wire Crowd Fusion 1 L45114 735046 878 63 804208 5 [id number] (S66522) SHEATH 5FR Terumo 1 OXF395 992892 234 592 277540 40 [place] (JVN922) BENTSON 145cm [facility] 1 P19193 126474 336719 5 4831828 wire (J60879) Micropuncture VSI VSI VASCULAR 1 7266V 839717 162041 5 4FR kit SOLUTIONS Tegaderm 4 x 4 3M 1 1626W 536080 110 563 173393 5 (1626W) Sterile Cardinal 1 [id number] 849389 472520 5 Angiographic Pack Health Bag Decanter Microtek 1 838090 275 12 703664 5 () Medical Inc. DIAGNOSTIC IMT Commiskey 1 [id number] 929601 347 373 35634 5 5Fr Catheter [employer] (389430559) INFLATOR Merit 1 JQ4720 003525 182 465 750272 5 SubHub (VB6215) ROADRUNNER .[address] [facility] 1 H91151 280008 160 613 299728 5 8969769 260 glide wire (R25797) CXI SUPPORT .[address] [facility] 1 R41537 017958 747 559 191494 5 3415876 135 CM STR catheter (U82154) Diamond RAABE 6FR. [facility] 1 S08163 035603 530568 5 90cm guide sheath CHOICE PT Floppy Commiskey 1 [id number] 618702 201 969 135325 5 Straight 300cm Scientific guide wire (59108851) [place]old[place] Plus 3 x Medtronic 1 [id number] 849752 984 234 264725 5 120 x 130 Balloon ([id number]) [place] LX-C Medtronic 1 THS-LX-C 106120 420573 5 [id number] Atherectomy catheter (THSLXC) AMPLATZ Super Commiskey 1 [id number] 043397 660 60 414983 5 stiff 260cm wire Scientific ([id number]) IN.PACT Admiral 5 Medtronic 1 [id number] 130634 101 8784 150737 5 [id number] x 150 x 130 DCB balloon ([id number]) IN.PACT Admiral 6 Medtronic 1 [id number] 847070 101 8783 677303 5 [id number] x 150 x 130 DCB balloon ([id number]) Everflex 6 x 60 x Medtronic 1 [id number] 744590 616 968 250084 5 [id number] 120 Stent e502600 ([id number]) Evercross 7 x 100 Medtronic 1 [id number] 392363 858 488 532607 5 [id number] x 135 Balloon ([id number]) Evercross 5 x 100 Medtronic 1 [id number] 942798 858 415 324546 5 [id number] x 135 Balloon ([id number]) ENTRUST 7 X 150 X Medtronic 1 [id number] ENTRUST 7 X 150 X 617 042 298208 5 [id number] 120 STENT 120 STENT [id number] ([id number] ([id number] Entrust 8 x 150 Medtronic 1 [id number] 215097 617 149 267797 5 [id number] Stent [id number] ([id number]) SHEATH 6FR Terumo 1 MUJ484 784447 234 593 113227 40 [place] (ISP162) EXOSEAL 6Fr Cardinal 1 EX600 355709 259 307 361867 10 [id number] (EX600) Health Signature Audit [place] Stage Time Signature Unsigned Intra-Procedure 01/29/2018 Gloria Peck 10:41:02 AM RT(R) Signatures Monitor : Gloria Peck RT Signature : Date : Time : [facility] [address] [place] [address]
[2018-01-29 06:12] LABS: BASOPHILS 0.3 % (0-2); EOSINOPHILS 3.7 % (0-7); HEMATOCRIT 36.6 % (42.0-54.0); IMMATURE GRANULOCYTES 0.3 % (0-5); LYMPHOCYTES 16.9 % (15-50); MCH 27.9 pg (26.0-34.0); MCHC 32.8 g/dL (31.0-37.0); MCV 85.1 fL (80.0-100.0); MONOCYTES 5.9 % (2-11); NEUTROPHILS 72.9 % (40-80); RDW 12.9 % (11.5-14.5); WBC 11.8 10x3/uL (4.8-10.8)
[2018-01-29 06:23] VITALS: BP 136/82; Ht 185.4 cm; Wt 73.6 kg
[2018-01-29 06:28] LABS: INR 1.14 (0.85-1.17); PROTIME 14.2 SECONDS (11.6-15.0)
[2018-01-29 06:29] LABS: APTT 31.2 SECONDS (22.8-39.4)
[2018-01-29 06:32] LABS: PLATELET COUNT 278 10x3/uL (130-400)
[2018-01-29 06:41] LABS: ANION GAP 13.8 mmol/L (8-16); CALCIUM 9.8 mg/dL (8.5-10.1); CARBON DIOXIDE 27.4 mmol/L (21.0-32.0); CREATININE - SERUM 1.1 mg/dL (0.6-1.3); POTASSIUM - SERUM 4.2 mmol/L (3.5-5.1)
== END 2018-01-29 15:01 | disposition home or self-care (01) ==
LOC: D.SP 05:24 → D.RAD 08:00 → D.SP 08:00
PROVIDERS: Radiology Diagnostic Radiology
DX: I70.213 Atherosclerosis of native arteries of extremities with intermittent claudication, bilateral legs (principal); I70.223 Atherosclerosis of native arteries of extremities with rest pain, bilateral legs; E11.9 Type 2 diabetes mellitus without complications; E78.00 Pure hypercholesterolemia, unspecified; F17.200 Nicotine dependence, unspecified, uncomplicated; Z01.812 Encounter for preprocedural laboratory examination

== ENCOUNTER → 2018-09-04 09:21 | Outpatient (CLI) | payer BC ==
[2018-01-29 06:23] VITALS: BMI 21.4
== END | disposition home or self-care (01) ==
LOC: D.CT 09:21
DX: I73.9 Peripheral vascular disease, unspecified (principal); L97.522 Non-pressure chronic ulcer of other part of left foot with fat layer exposed

== ENCOUNTER 2018-09-18 05:48 | Outpatient (CLI) | payer BC ==
[~2018-09-18] VITALS: Ht 185.4 cm; Wt 73.6 kg
--- NOTE | ~2018-09-18 | HEMODYNAMI ---
PATIENT:JENA REAVES MEDICAL RECORD: [id number] : 56 LOCATION:[facility] ADMISSION DATE: 09/18/18 Generatedon:09/18/201810:52 Patient name: JENA REAVES Patient #: [id number] SSN: : 1960 Date of study: 09/18/2018 Page: Of Hemodynamic Procedure Report Patient Data Patient Demographics Procedure consent was obtained First Name: JENA Gender: Male Last Name: JELLY : 1960 Middle Initial: L Age: 58 year(s) Patient #: [id number] Race: Black Additional ID: [id number] Contact details Address: [address] [place] [address] State: [place] City: [place] Zip code: [address] Past Medical History Allergies: No known allergies Admission Admission Data Admission Date: 09/18/2018 Admission Time: 5:48 Weight (lbs.): 163 Weight (kg.): 73.94 Procedure Procedure Types Cath Procedure Peripheral Cath Diagnostic Procedure Operations Expert Peripheral Procedures Abd/Extremity Extremities Left Lower Ext Arterio Procedure Description Procedure Date Procedure Date: 09/18/2018 Procedure Start Time: 8:40 Procedure Staff Name Function Richard Pacheco MD Performing Physician Gloria Peck RT Toby Maker Tamela Gandhi RN Nurse Jaclyn Dasilva RN Nurse Garth Ovalles RT Scrub Procedure Data Cath Procedure Fluoroscopy Diagnostic fluoroscopy Total fluoroscopy Time: time: 33.5 min 33.5 min Diagnostic fluoroscopy Total fluoroscopy dose: 843 dose: 843 mGy mGy Contrast Material Contrast Material Type Amount (ml) Isovue 300 125 Entry Location Entry Primary Successful Side Size Upsize Upsize Entry Closure Succes sful Closure Location (Fr) 1 (Fr) 2 (Fr) Remarks Device Remarks Femoral Exoseal artery Diagnostic catheters Device Type Used For End Catheter Placement DIAGNOSTIC IMT 5Fr Catheter ([id number]) Procedure Medications Medication Administration Route Dosage Oxygen etCO2 Nasal cannula 4 l/min Lidocaine 1% added to field 20 Heparin Flush Bag added to field 3 bags (1000units/500ml NS) Versed I.V. 2 mg Fentanyl I.V. 50 mcg Fentanyl I.V. 50 mcg Heparin Bolus I.V. 4000 units Fentanyl I.V. 50 mcg Nitroglycerin IC/IA I.A. 250 mcg Versed I.V. 1 mg Fentanyl I.V. 50 mcg Heparin Bolus I.V. 2000 units Nitroglycerin IC/IA I.A. 250 mcg Versed I.V. 1 mg Fentanyl I.V. 50 mcg Fentanyl I.V. 50 mcg Heparin Bolus I.V. 2000 units Nitroglycerin IC/IA I.A. 250 mcg Hemodynamics Rest Heart Rate: 72 (bpm) Snapshots Pre Cath Intra NCS Post Cath Vital Signs Time Heart Resp SPO2 etCO2 NIBP (mmHg) Rhythm Pain Status Sedation Rate (ipm) (%) (mmHg) Level (bpm) 8:40:35 65 5 34 149/85(121) NSR 0 (11) , No 10(A) pain 8:44:55 71 3 100 32.5 146/78(120) NSR 0 (11) , No 9(A) pain 8:49:14 70 14 100 28 138/74(114) NSR 0 (11) , No 8(A) pain 8:53:28 85 16 99 23.4 145/82(119) NSR 4 (11) , 8(A) Distressing 8:57:50 69 15 100 26.5 140/72(115) NSR 0 (11) , No 8(A) pain 9:02:08 75 12 100 33.3 134/74(108) NSR 0 (11) , No 8(A) pain 9:06:24 71 13 98 32.5 141/73(121) NSR 0 (11) , No 8(A) pain 9:10:44 74 13 99 20.4 137/69(111) NSR 0 (11) , No 8(A) pain 9:15:00 69 12 100 26.5 151/79(121) NSR 0 (11) , No 8(A) pain 9:19:22 76 14 99 27.2 147/72(112) NSR 0 (11) , No 8(A) pain 9:23:42 75 12 97 25 136/73(113) NSR 0 (11) , No 8(A) pain 9:27:58 77 13 96 29.5 145/73(117) NSR 0 (11) , No 8(A) pain 9:32:08 91 13 98 25.7 131/79(104) NSR 0 (11) , No 8(A) pain 9:36:24 81 12 97 30.3 147/73(121) NSR 0 (11) , No 8(A) pain 9:40:38 84 14 97 25 139/74(103) NSR 0 (11) , No 8(A) pain 9:44:54 84 16 98 25 136/80(102) NSR 0 (11) , No 8(A) pain 9:49:08 82 14 98 31 133/82(104) NSR 0 (11) , No 8(A) pain 9:53:22 87 10 99 26.5 143/80(110) NSR 0 (11) , No 8(A) pain 9:57:38 83 12 100 28 140/80(113) NSR 0 (11) , No 8(A) pain 10:01:54 83 12 100 31 131/73(101) NSR 0 (11) , No 8(A) pain 10:06:04 89 13 100 27.2 136/84(104) NSR 0 (11) , No 8(A) pain 10:10:22 86 11 100 31 141/72(96) NSR 0 (11) , No 8(A) pain 10:14:38 82 13 100 28.8 137/80(114) NSR 0 (11) , No 8(A) pain 10:18:50 83 14 100 23.4 135/85(111) NSR 0 (11) , No 8(A) pain 10:22:58 96 12 100 30.3 122/77(93) NSR 0 (11) , No 8(A) pain 10:27:08 96 13 98 31.8 140/81(108) NSR 0 (11) , No 8(A) pain 10:31:18 90 11 98 31 135/87(107) NSR 0 (11) , No 8(A) pain 10:35:32 84 10 98 33.3 146/80(110) NSR 0 (11) , No 8(A) pain 10:39:44 86 9 99 28.7 146/89(114) NSR 0 (11) , No 8(A) pain 10:43:58 84 10 99 30.2 148/83(115) NSR 0 (11) , No 8(A) pain 10:48:12 90 14 95 26.5 140/82(116) NSR 0 (11) , No 8(A) pain 10:52:11 0 No Cuff NSR 0 (11) , No 8(A) pain Medications Time Medication Route Dose Verified Delivered Reason Note s Effectiveness by by 8:41:00 Oxygen etCO2 4l/min Richard Rapp for sedation Nasal Tara Gandhi RN cannula 8:41:13 Lidocaine 1% added 20ml Richard Ramos used for to vial Tara Pacheco procedure field MD BARRIENTOS 8:41:32 Heparin Flush added 3 bags Richard Ramos used for Bag to Tara Pacheco procedure (1000units/500ml field MD BARRIENTOS NS) 8:44:08 Versed I.V. 2 mg Richard Rapp for sedation Fully awake @ Tara Gandhi RN 8:48:42 8:44:20 Fentanyl I.V. 50 mcg Richard Rapp for sedation Fully awake @ Tara Gandhi RN 8:48:38 8:48:50 Fentanyl I.V. 50 mcg Richard Rapp for sedation Mostly Tara Gandhi RN sleeping @ 8:54:45 8:53:13 Heparin Bolus I.V. 4000 Richard Rapp for units Tara Gandhi RN anticoagulation 8:54:28 Fentanyl I.V. 50 mcg Richard Rapp for sedation Mostly Tara Gandhi RN sleeping @ 8:57:36 9:18:33 Nitroglycerin I.A. 250mcg Richard Ramos for IC/IA Tara armijo MD, MD 9:20:48 Versed I.V. 1 mg Richard Rapp for sedation Mostly Tara Gandhi RN sleeping @ 9:35:20 9:20:55 Fentanyl I.V. 50 mcg Richard Rapp for sedation Mostly Tara Gandhi RN sleeping @ 9:35:14 9:28:45 Heparin Bolus I.V. 2000 Richard Rapp for units Tara Gandhi RN anticoagulation 9:30:45 Nitroglycerin I.A. 250mcg Richard Ramos for IC/IA Tarakarie armijo MD, MD 9:52:08 Versed I.V. 1 mg Rcihard Rapp for sedation Mostly Tara Gandhi RN sleeping @ 10:01:33 9:53:07 Fentanyl I.V. 50 mcg Richard Rapp for sedation Mostly Tara Gandhi RN sleeping @ 10:01:28 9:59:01 Fentanyl I.V. 50 mcg Richard Rapp for sedation Mostly Tara Gandhi RN sleeping @ MD 10:16:19 10:05:10 Heparin Bolus I.V. 2000 Richard Rapp for units Tara Gandhi RN anticoagulation MD 10:21:11 Nitroglycerin I.A. 250mcg Richard Ramos for IC/IA Tara armijo MD, MD Procedure Log Time Note 8:00:27 Use device set IR Diagnostic 8:00:33 Tegaderm 4 x 4 (1626W) opened to sterile field. 8:00:33 Sterile Angiographic Pack opened to sterile field. 8:00:34 Bag Decanter (2002S) opened to sterile field. 8:00:35 ACIST Manifold (37350) opened to sterile field. 8:00:36 ACIST Hand Control (44744) opened to sterile field. 8:00:38 ACIST Syringe (76988) opened to sterile field. 8:00:39 TUBING Contrast Injection High Pressure (NGW207Z) opened to sterile field. 8:00:40 SHEATH 6FR Destination (RSR01) opened to sterile field. 8:00:41 CHOICE PT Extra Support J 300cm guide wire ([id number]) opened to steril e field. 8:00:42 BENTSON 145cm wire (Q77492) opened to sterile field. 8:00:45 A DIAGNOSTIC IMT 5Fr Catheter ([id number]) was advanced over the wire an d used for . 8:00:49 GONZALEZ 260 wire (C75822) opened to sterile field. 8:00:51 Micropuncture VSI 4FR kit opened to sterile field. 8:00:52 SHEATH 5FR [place] (XFT929) opened to sterile field. 8:20:35 Time tracking: Regular hours (M-F 7:00 - 5:00) 8:20:54 Plan of Care:Hemodynamics will remain stable., Cardiac rhythm will remain stable., Comfort level will be maintained., Respiratory function will remain adequate., Patient/ family verbilizes understanding of procedure., Procedure tolerated without complication., Recovers from procedure without complications.. 8:21:02 Signed procedure consent form obtained from patient. 8:21:12 H&P Date Dictated: 09/18/2018 Within 30 days and on chart.. 8:21:14 Pre-procedure instructions explained to patient. 8:21:16 Pre-op teaching completed and patient verbalized understanding. 8:21:17 Family in waiting room. 8:21:20 Patient NPO since Midnight. 8:21:26 Patient allergic to No known allergies 8:21:31 Is the patient allergic to Iodine/contrast media? No. 8:21:34 Is patient on blood thinner?Yes 8:21:39 ACC The patient was administered the following blood thiners within the last 24 hours: ACCPlavix 8:21:43 Patient diabetic? Yes. 8:21:46 If diabetic: On Metformin? Yes 8:21:54 If on Metformin: Last Dose? 09/16/2018 8:21:57 - 8:22:00 ----Pre-sedation anethsthesia assessment.---- 8:22:03 Previous problem with sedation/anesthesia? No ? 8:22:06 Snore? No 8:22:09 Sleep apnea? Yes 8:22:11 Deviated septum? No 8:22:13 Opens mouth fully? Yes 8:22:15 Sticks out tongue? Yes 8:22:18 Airway obstruction? No ? 8:22:23 Dentures? Yes ? 8:22:26 - 8::31 Pre procedure: right dorsailis pedis pulse Doppler 8:22:34 Pre procedure: left dorsailis pedis pulse Doppler 8:22:39 Pre procedure: right posterior tibial pulse Doppler 8:22:43 Pre procedure: left posterior tibial pulse Doppler 8:22:54 IV patent on arrival in right hand with D5/.45%NaCl at [facility]. 8:23:02 Right groin area was prepped with chlora-prep and draped in sterile fashion 8:23:04 - 8:23:26 - 8:39:23 ECG and BP/O2 sat monitors applied to patient. 8:39:24 Vital chart was started 8:39:28 Baseline sample Acquired. 8:39:31 Full Disclosure recording started 8:39:32 - 8:39:40 Physician arrived 8:39:49 --------ALL STOP TIME OUT------ 8:39:50 Final Timeout: patient, procedure, and site verified with staff and physician. All members of the team are in agreement. 8:40:07 Procedure started. 8:40:12 Local anesthetic to right femoral artery with Lidocaine 1% by Richard Pacheco MD.INITIAL ACCESS ONLY 8:40:15 Arterial access obtained using ultrasound guidance. 8:41:00 Oxygen 4l/min etCO2 Nasal cannula was administered by Tamela Gandhi RN; for sedation; 8:41:13 Lidocaine 1% 20ml vial added to field was administered by Richard haji MD; used for procedure; 8:41:32 Heparin Flush Bag (1000units/500ml NS) 3 bags added to field was administered by Richard Pacheco MD; used for procedure; 8:44:08 Versed 2 mg I.V. was administered by Tamela Gandhi RN; for sedation; 8:44:20 Fentanyl 50 mcg I.V. was administered by Tamela Gandhi RN; for sedation; 8:48:38 Effectiveness of Fentanyl delivered @ 8:44:20 is: Fully awake 8:48:42 Effectiveness of Versed delivered @ 8:44:08 is: Fully awake 8:48:50 Fentanyl 50 mcg I.V. was administered by Tamela Gandhi RN; for sedation; 8:48:53 Cook RAABE 6FR. 90cm guide sheath opened to sterile field. 8:51:54 Patient Weight : 163 lbs 8:52:38 ROADRUNNER FIRM 260CM glide wire (J19889) opened to sterile field. 8:53:13 Heparin Bolus 4000 units I.V. was administered by Tamela Gandhi RN; for anticoagulation; 8:54:28 Fentanyl 50 mcg I.V. was administered by Tamela Gandhi RN; for sedation; 8:54:45 Effectiveness of Fentanyl delivered @ 8:48:50 is: Mostly sleeping 8:56:18 CXI SUPPORT .035 135 CM STR catheter (H56105) opened to sterile field. 8:57:36 Effectiveness of Fentanyl delivered @ 8:54:28 is: Mostly sleeping 9:04:13 INFLATOR BasixTOUCH (XH8316) opened to sterile field. 9:04:51 Inflate balloon Inflation number: 1 A Evercross 3 x 2 x 135 Balloon ([id number]) was prepped and advanced across the Undefined1, then inflated. 9:07:43 Trailblazer 0.035 135cm catheter ([id number]) opened to sterile field. 9:14:24 COPILOT Valve Control (3677149) opened to sterile field. 9:17:27 Inflate balloon Inflation number: 1 A CHOCOLATE 3.5 x 120 x 135 balloon ([id number]) was prepped and advanced across the Undefined2, then inflated. 9:18:33 Nitroglycerin IC/IA 250mcg I.A. was administered by Richard Pacheco MD; for vasodilation; 9:20:48 Versed 1 mg I.V. was administered by Tamela Gandhi RN; for sedation; 9::55 Fentanyl 50 mcg I.V. was administered by Tamela Gandhi RN; for sedation; 9:28:45 Heparin Bolus 2000 units I.V. was administered by Tamela Gandhi RN; for anticoagulation; 9:30:45 Nitroglycerin IC/IA 250mcg I.A. was administered by Richard Pacheco MD; for vasodilation; 9:31:26 [place] 1 Small Atherectomy catheter (H1S) opened to sterile field. 9:35:14 Effectiveness of Fentanyl delivered @ 9::55 is: Mostly sleeping 9:35:20 Effectiveness of Versed delivered @ 9:20:48 is: Mostly sleeping 9:42:46 CXI SUPPORT .018 150CM ANG catheter (B98228) opened to sterile field. 9:47:03 Inflate balloon Inflation number: 1 A Newton Plus 6 x 4 x 130 Balloon ([id number]) was prepped and advanced across the Undefined3, then inflated. 9:52:08 Versed 1 mg I.V. was administered by Tamela Gandhi RN; for sedation; 9:53:07 Fentanyl 50 mcg I.V. was administered by Tamela Gandhi RN; for sedation; 9:56:03 EVERFLEX 5 x 40 x 120 stent ([id number]) was deployed across Undefined3 . 9:57:14 Inflate balloon Inflation number: 2 A Newton Plus 5 x 4 x 130 Balloon ([id number]) was prepped and advanced across the Undefined3, then inflated. 9:59:01 Fentanyl 50 mcg I.V. was administered by Tamela Gandhi RN; for sedation; 10:01:28 Effectiveness of Fentanyl delivered @ 9:53:07 is: Mostly sleeping 10:01:33 Effectiveness of Versed delivered @ 9:52:08 is: Mostly sleeping 10:05:10 Heparin Bolus 2000 units I.V. was administered by Tamela Gandhi RN; for anticoagulation; 10:12:16 Inflate balloon Inflation number: 3 A Evercross 5 x 4 x 135 Balloon ([id number]) was prepped and advanced across the Undefined3, then inflated. 10:16:19 Effectiveness of Fentanyl delivered @ 9:59:01 is: Mostly sleeping 10:16:57 Inflate balloon Inflation number: 1 A Evercross 6 x 100 x 135 Balloon ([id number]) was prepped and advanced across the Undefined4, then inflated. 10:21:11 Nitroglycerin IC/IA 250mcg I.A. was administered by Richard Pacheco MD; for vasodilation; 10:23:50 SHEATH 6FR [place] (HAR035) opened to sterile field. 10:23:52 EXOSEAL 6Fr (EX600) opened to sterile field. 10:30:04 EVERFLEX 7 x 40 Stent ([id number]) was deployed across Undefined5 . 10:31:08 ation number: 1 A EVERCROSS 7 x 4 x 135 balloon ([id number]) was prepped and advanced across the Undefined5, then inflated. 10:34:42 FAMILY UPDATE 10:39:41 A sheath was inserted into the Femoral artery 10:39:41 Sheath removed intact; hemostasis achieved with Exoseal to the Femoral artery. 10:40:30 Procedure ended.(Physican Out) 10:40:46 Fluoroscopy time 33.50 minutes. 10:41:00 Fluoroscopy dose: 843 mGy 10:41:00 Flurop Dose total: 843 10:41:11 Contrast amount:Isovue 300 125ml. 10:52:02 Procedure and supply charges have been captured, reviewed, submitted an d are correct. 10:52:07 Post Procedure Pulses reassessed and unchanged 10:52:13 Report given to Outpatients. 10:52:43 Vital chart was stopped Intervention Summary Intervention Notes Time ActionType Lesion and Equipment Used Action# Pressure Duration Attributes 9:04:51 Inflate Undefined1 Evercross 3 x 2 x 1 0 00:00 balloon 135 Balloon ([id number]) 9:17:27 Inflate Undefined2 CHOCOLATE 3.5 x 1 0 00:00 balloon 120 x 135 balloon ([id number]) 9:47:03 Inflate Undefined3 Newton Plus 7 x 1 0 00:00 balloon 4 x 130 Balloon ([id number]) 9:56:03 Deploy self Undefined3 EVERFLEX 5 x 40 x 1 expanding 120 stent stent ([id number]) 9:57:14 Inflate Undefined3 Newton Plus 5 x 2 0 00:00 balloon 2 x 130 Balloon ([id number]) 10:12:16 Inflate Undefined3 Evercross 5 x 4 x 3 0 00:00 balloon 135 Balloon ([id number]) 10:16:57 Inflate Undefined4 Evercross 6 x 100 1 0 00:00 balloon x 135 Balloon ([id number]) 10:30:04 Deploy self Undefined5 EVERFLEX 7 x 40 1 expanding Stent stent ([id number]) 10:31:08 Inflate Undefined5 EVERCROSS 7 x 4 x 1 0 00:00 balloon 135 balloon ([id number]) Device Usage Item Name Manufacture Quantity Catalog Number Hospital Part Cur rent Minimal Lot# / Charge Number Stock Stock Serial# Code Tegaderm 4 x 4 3M 1 1626W [id number] 604788 993 369 5 (1626W) Sterile Cardinal 1 [id number] 955960 998 410 5 Angiographic Pack Health Bag Decanter Microtek 1 2001S 372024 50553 988 157 5 (2001S) Medical Inc. ACIST Manifold Acist 1 80531 781329 525698 989 899 5 (72357) Medical Systems Inc ACIST Hand Acist 1 41225 040613 596793 989 882 5 Control (94611) Medical Systems Inc ACIST Syringe Acist 1 94320 652959 285354 989 457 20 (05058) Medical Systems Inc TUBING Contrast Merit 1 IIZ950W 702397 752159 999 495 5 Injection High Medical Pressure (AAF987A) SHEATH 6FR Terumo 1 RSR01 078218 66437 999 696 5 Destination (RSR01) CHOICE PT Extra [place] 1 [id number] 383919 901643 999 075 5 Support J 300cm Scientific guide wire ([id number]) BENTSON 145cm Trampoline Medical 1 O60220 371635 999 710 5 wire (D32333) DIAGNOSTIC IMT [place] 1 [id number] 245865 916498 997 77 5 69305084 5Fr Catheter Scientific (037706119) GONZALEZ 260 wire Cook Medical 1 L37052 635937 79022 999 634 5 4887521 (Q60711) Micropuncture VSI VSI VASCULAR 1 7266V 054850 999 399 5 4FR kit SOLUTIONS SHEATH 5FR Terumo 1 DNC227 543253 846190 995 953 5 [place] (ZMO663) Cook RAABE 6FR. [facility] 1 M29142 648652 999 945 5 90cm guide sheath ROADRUNNER FIRM [facility] 1 N42000 006593 999 961 5 [id number] 260CM glide wire (G07093) CXI SUPPORT .035 [facility] 1 E53426 382894 758252 999 850 5 8507965 135 CM STR catheter (T90881) INFLATOR Merit 1 XC9676 701227 556575 999 822 5 BasixTOSnabboteket Medical (ZM4117) Evercross 3 x 2 x Medtronic 1 [id number] 155144 355194 999 997 5 [id number] 135 Balloon ([id number]) Trailblazer 0.035 Medtronic 1 ASC-035-135 784307 58145 999 967 5 135cm catheter (FWZ146317) COPILOT Valve [place] 1 5251553 615245 724165 999 793 5 Control (9872586) Vascular CHOCOLATE 3.5 x Medtronic 1 [id number] O 255394 592669 999 997 5 [id number] 120 x 135 balloon TW [id number] ([id number]) [id number] [place] 1 Small Medtronic 1 H1-S 509376 8336589 999 974 5 [id number] Atherectomy catheter (H1S) CXI SUPPORT .018 [facility] 1 B78891 055006 463115 999 992 5 8698373 150CM ANG catheter (Z19206) Newton Plus 7 x Medtronic 1 [id number] 912873 356257 999 998 5 [id number] 4 x 130 Balloon ([id number]) EVERFLEX 5 x 40 x Medtronic 1 KMC96-94-172-315 945669 272928 999 998 5 [id number] 120 stent [id number] ([id number]) Newton Plus 5 x Medtronic 1 [id number] 216520 266575 999 998 5 [id number] 2 x 130 Balloon ([id number]) Evercross 5 x 4 x Medtronic 1 [id number] 652091 463160 999 991 5 [id number] 135 Balloon ([id number]) Evercross 6 x 100 Medtronic 1 [id number] 625426 216744 999 995 5 [id number] x 135 Balloon ([id number]) SHEATH 6FR Terumo 1 UDO449 007816 067653 996 275 40 [place] (SCV672) EXOSEAL 6Fr Cardinal 1 EX600 404533 207746 997 169 10 [id number] (EX600) Health EVERFLEX 7 x 40 Medtronic 1 XTR13-58-587-328 071080 273967 999 998 5 [id number] Stent [id number] ([id number]) EVERCROSS 7 x 4 x Medtronic 1 [id number] 928707 999 998 5 [id number] 135 balloon ([id number]) Signature Audit [place] Stage Time Signature Unsigned Intra-Procedure 09/18/2018 Gloria Peck 10:52:40 AM RT(R) [place] [address] [place] [address]
[2018-09-18 06:17] LABS: BASOPHILS 0.4 % (0-2); EOSINOPHILS 3.1 % (0-7); HEMATOCRIT 37.8 % (42.0-54.0); HEMOGLOBIN 12.6 g/dL (13.5-17.5); IMMATURE GRANULOCYTES 0.1 % (0-5); LYMPHOCYTES 19.3 % (15-50); MCH 29.2 pg (26.0-34.0); MCHC 33.3 g/dL (31.0-37.0); MCV 87.5 fL (80.0-100.0); MEAN PLATELET VOLUME 9.1 fL (7.4-10.4); MONOCYTES 8.4 % (2-11); NEUTROPHILS 68.7 % (40-80); RBC 4.32 10x6/uL (4.20-6.10); RDW 14.1 % (11.5-14.5)
[2018-09-18 06:31] LABS: APTT 29.4 SECONDS (22.8-39.4); INR 1.24 (0.85-1.17); PROTIME 15.1 SECONDS (11.6-15.0)
[2018-09-18 06:41] LABS: CALCIUM 9.7 mg/dL (8.5-10.1); CARBON DIOXIDE 27.1 mmol/L (21.0-32.0); CREATININE - SERUM 1.1 mg/dL (0.6-1.3); POTASSIUM - SERUM 4.1 mmol/L (3.5-5.1)
[2018-09-18 06:47] LABS: PLATELET COUNT 160 10x3/uL (130-400)
[2018-09-18 07:31] VITALS: BP 131/70; Ht 185.4 cm; Wt 73.6 kg
--- NOTE | 2018-09-18 11:41 | NUR ---
ALL V/S RECORDED ON POST OP V/S PAPER SHEET IN CHART.
--- NOTE | 2018-09-18 12:30 | NUR ---
LYING WITH EYES CLOSED. FAMILY AT BEDSIDE. AROUSED TO VERBAL STIMULI. DRESSING CDI.
--- NOTE | 2018-09-18 13:30 | NUR ---
EYES CLOSED. RESPIRATIONS UNLABORED. DRESSING CDI TO RIGHT GROIN.
--- NOTE | 2018-09-18 14:30 | NUR ---
AROUSES TO VERBAL STIMULI. DRESSING CDI TO RIGHT GROIN. NO FAMILY AT BEDSIDE AT THIS TIME.
--- NOTE | 2018-09-18 15:00 | NUR ---
SRINIVAS PERES RN WITH [facility] HERE AND RELATES IT IS OK FOR PATIENT TO GO HOME.
--- NOTE | 2018-09-18 15:15 | NUR ---
IV DC'D WITH CATHETER INTACT. UP TO BATHROOM AND GETTING DRESSED.
--- NOTE | 2018-09-18 17:00 | NUR ---
DC'D HOME WITH FAMILY VIA PRIVATE VEHICLE. TAKEN TO VEHICLE VIA WC. STALBE AT TIME OF DC
== END 2018-09-18 17:00 | disposition home or self-care (01) ==
LOC: D.SP 05:48 → D.RAD 08:00 → D.SP 08:00
PROVIDERS: Radiology Diagnostic Radiology
DX: I70.245 Atherosclerosis of native arteries of left leg with ulceration of other part of foot (principal); I70.92 Chronic total occlusion of artery of the extremities; F17.200 Nicotine dependence, unspecified, uncomplicated; T82.856A Stenosis of peripheral vascular stent, initial encounter; E11.9 Type 2 diabetes mellitus without complications; Z01.812 Encounter for preprocedural laboratory examination

== ENCOUNTER → 2019-10-04 07:58 | Outpatient (CLI) | payer BC ==
[2018-09-18 07:31] VITALS: BMI 21.4
== END | disposition home or self-care (01) ==
LOC: D.CT 07:58
PROVIDERS: ATTEND Radiology Diagnostic Radiology
DX: I73.9 Peripheral vascular disease, unspecified (principal); I99.8 Other disorder of circulatory system